=== PATIENT | female | born 1990 | race Caucasian/White ===

== ENCOUNTER 2017-04-04 22:27 | Emergency (ER) | payer OTHER ==
[~2017-04-04] VITALS: Ht 167.6 cm; Wt 83.0 kg
[2017-04-04 22:38] VITALS: BP 108/58; Ht 167.6 cm; Wt 83.0 kg
== END 2017-04-04 23:16 | disposition home or self-care (01) ==
LOC: ED 22:27
DX: M26.603 Bilateral temporomandibular joint disorder, unspecified (principal); G44.209 Tension-type headache, unspecified, not intractable
CPT/HCPCS: J1885; Q0162

== ENCOUNTER 2017-07-02 22:10 | Emergency (ER) | payer OTHER ==
[~2017-07-02] VITALS: Ht 170.2 cm; Wt 83.9 kg
[2017-07-02 22:14] VITALS: BP 116/64; Ht 170.2 cm; Wt 83.9 kg
== END 2017-07-03 01:24 | disposition left against medical advice (07) ==
LOC: ED 22:10
DX: Z53.21 Procedure and treatment not carried out due to patient leaving prior to being seen by health care provider (principal)

== ENCOUNTER 2017-07-03 22:30 | Emergency (ER) | payer OTHER ==
[~2017-07-03] VITALS: Ht 167.6 cm; Wt 84.5 kg
[2017-07-03 22:36] VITALS: Ht 167.6 cm; Wt 84.5 kg
[2017-07-03 23:28] LABS: CALCIUM 8.4 mg/dL (8.5-10.1); CARBON DIOXIDE 28.9 mmol/L (21-32); CHLORIDE SERUM 105 mmol/L (98-107); CREATININE SERUM 0.8 mg/dL (0.6-1.0); GFR1 > 60 mL/min; GLUCOSE SERUM 122 mg/dL (74-106); POTASSIUM SERUM 3.9 mmol/L (3.5-5.1); SODIUM SERUM 140 mmol/L (136-145)
[2017-07-03 23:33] LABS: BASOPHIL % 0.4 % (0-2); PLATELET COUNT 259 x10^3mcL (130-400); RED CELL DISTRIBUTION WIDTH 13.5 % (11.5-14.5)
[2017-07-03 23:38] LABS: ALBUMIN 3.7 g/dL (3.4-5.0); ALKALINE PHOSPHATASE 71 U/L (46-116); ALT/SGPT 31 U/L (14-59); AST/SGOT 15 U/L (15-37); BILIRUBIN TOTAL 0.3 mg/dL (0.20-1.00); TOTAL PROTEIN, SERUM 7.2 g/dL (6.4-8.2)
[2017-07-04 03:12] VITALS: BP 102/62
== END 2017-07-04 03:12 | disposition home or self-care (01) ==
LOC: ED 22:30
PROVIDERS: Emergency Medicine
DX: R07.9 Chest pain, unspecified (principal)
CPT/HCPCS: 36415; 83880

== ENCOUNTER 2017-12-09 00:42 | Emergency (ER) | payer MEDICAID ==
[~2017-12-09] VITALS: Ht 167.6 cm; Wt 87.1 kg
[2017-12-09 00:54] VITALS: Ht 167.6 cm; Wt 87.1 kg
[2017-12-09 04:03] VITALS: BP 106/59
== END 2017-12-09 04:03 | disposition home or self-care (01) ==
LOC: ED 00:42
DX: R60.0 Localized edema (principal); R20.2 Paresthesia of skin
CPT/HCPCS: Q0092

== ENCOUNTER 2019-02-26 17:58 | Emergency (ER) | payer OTHER ==
[~2019-02-26] VITALS: Ht 167.6 cm; Wt 86.2 kg
[2019-02-26 18:09] VITALS: Ht 167.6 cm; Wt 86.2 kg
[2019-02-26 19:23] LABS: CALCIUM 8.7 mg/dL (8.5-10.1); CARBON DIOXIDE 30.1 mmol/L (21-32); CHLORIDE SERUM 103 mmol/L (98-107); CREATININE SERUM 0.9 mg/dL (0.6-1.0); GFR1 > 60 mL/min; GLUCOSE SERUM 108 mg/dL (74-106); POTASSIUM SERUM 3.9 mmol/L (3.5-5.1); SODIUM SERUM 140 mmol/L (136-145)
[2019-02-26 19:35] LABS: BASOPHIL % 0.4 % (0-2); PLATELET COUNT 299 x10^3mcL (130-400); RED CELL DISTRIBUTION WIDTH 13.8 % (11.5-14.5)
[2019-02-26 19:38] LABS: ALKALINE PHOSPHATASE 69 U/L (46-116); ALT/SGPT 73 U/L (14-59); AST/SGOT 26 U/L (15-37); BILIRUBIN TOTAL 0.46 mg/dL (0.20-1.00); T4(THYROXINE) 6.7 ug/dL (4.7-13.3); TOTAL PROTEIN, SERUM 6.9 g/dL (6.4-8.2)
[2019-02-26 19:43] LABS: ALBUMIN 3.2 g/dL (3.4-5.0)
[2019-02-26 21:30] VITALS: BP 107/57
== END 2019-02-26 21:30 | disposition home or self-care (01) ==
LOC: ED 17:58
PROVIDERS: Emergency Medicine
DX: R60.0 Localized edema (principal); Z98.890 Other specified postprocedural states
CPT/HCPCS: 36415; 83880; Q0092